=== PATIENT | female | born 1940 | race Caucasian/White ===

== ENCOUNTER 2025-05-01 11:14 | Inpatient (IN) ==
--- NOTE | 2025-05-01 11:45 | Emergency Department Note ---
Impression & Plan Acute right flank pain, Hematuria ED Provider Note NAME: GERTRUDIS AVILA AGE: 84 SEX: F : 1940 ARRIVES VIA: Walk-In INFORMANT: [Patient] ED PROVIDER(S): [Zander Gaines MD] CHIEF COMPLAINT: Hematuria HISTORY OF PRESENT ILLNESS: The patient is an 84-year-old female who presents to the ER with some right flank/abdominal discomfort that began this morning around 6 hours ago. She has noticed some increasing urinary frequency throughout the day. The patient states that several hours ago, she noticed blood in the urine. She went to the doctor's office, she was referred to our ER. There has been some slight nausea, no vomiting. No fever. She is concerned for an issue with her kidneys. Her right sided abdominal/flank pain has been intermittent. PMHx/PSHx/Social Hx: See Below PHYSICAL EXAM: GENERAL: Patient is in no acute distress. HEENT: No acute trauma, normocephalic atraumatic, mucous membranes moist, no nasal congestion. NECK: No stridor, no adenopathy, no meningismus, trachea is midline. LUNGS: Clear to auscultation bilaterally, no wheeze, no rhonchi, breath sounds equal. HEART: Without murmurs gallops or rubs, regular rate and rhythm. ABDOMEN: Soft, nontender, no peritonitis. EXTREMITIES: No cyanosis, full range of motion of all the joints without pain or difficulty. NEUROLOGIC: Oriented x 3, no acute motor or sensory deficits, no focal weakness. SKIN: No jaundice, no diaphoresis. Back: No flank discomfort with percussion. DIFFERENTIAL DIAGNOSIS: Renal colic, pyelonephritis, hydronephrosis, coagulopathy, anemia, vaginal bleeding, among others. EMERGENCY DEPARTMENT PROCEDURES: MEDICAL DECISION MAKING: There is no leukocytosis or worrisome anemia. There is a normal platelet count. No bandemia. No coagulopathy. No renal failure or significant electrolyte abnormality. No concerning liver enzyme elevation. No evidence for pancreatitis. Urinalysis does show hematuria, no obvious infection. Abdominal and pelvis CT shows hemorrhage within the right renal pelvis but there is no ureteral stone or urinary obstruction. On exam, the patient initially had minimal discomfort however, during her ER stay, she began having increasing discomfort in the right flank. She continued to have hematuria. The patient received IV saline, she was given IV Zofran, IV Tylenol, IV morphine, a second dose of IV morphine was given. I did speak with urology. For now, no emergent urologic intervention is required. The patient will require a urologic hematuria workup. Given the ongoing pain, given the ongoing bleeding, admission/observation was felt warranted. I spoke with the patient and case management, the on-call hospitalist was consulted. Further workup for the cause for the hematuria is needed. Prior/Outside records/notes reviewed: None Imaging/x-ray results per my interpretation: Chronic Medical/Social conditions affecting care: Advanced age. Care/Management discussed with: Urology-Dr. Youssef's service. Case management and the on-call hospitalist. Level of care consideration(s): After review of the information above and other included data: --I believe the patient requires escalation of care to admission DISPOSITION: Admission Past Med/Surg History Problem List (Updated 05/01/25 @ 16:07 by Zander Gaines MD) Hematuria (Acute) Acute right flank pain (Acute) Hematuria Bone pain of lower leg Anxiety (Chronic) Encounter for pre-operative examination Insomnia Dyspnea (Acute) Dyspnea (Acute) Post-operative state (Acute 04/03/14) Post-operative state (Acute 06/05/14) Weakness (Acute) Medical History Cholecystectomy planned FH: bilateral hip replacements Surgical History History of cholecystectomy History of right hip replacement History of left hip replacement H/O partial thyroidectomy Family History Mother Colorectal cancer Father Myocardial infarction Denies family history of Ovarian cancer Prostate cancer Breast cancer Social History Smoking Status: Never smoker Second Hand Exposure: No; Do You Dip or Chew Tobacco: No; Hx Alcohol Use: No Hx Substance Use: No Preferred Language: Congolese Communication Ability: Effective Visual Impairment: Limited Hearing Ability: Normal 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 Deburrer Required: No Beliefs That Will Affect Care: None marital status: / Current Living Situation: Alone current occupational status: retired How many Children do You have: 3 Feels Safe at Home: Yes Childhood Exposure to Second-Hand Smoke: Yes Diet: regular caffeine: Yes (coffee) during the past year weight has: increased > 10 lbs Dental Care, Regularly: No Physical Activity Frequency: Daily Seatbelt Use: sometimes Sunscreen Use: No Gender Identity: Female Assistive Devices: Glasses Allergies Allergies Allergy/AdvReac Type Severity Reaction Status Date / Time No Known Allergies Allergy Verified 05/01/25 10:32 Home Meds Home Medications Medication Instructions Recorded Confirmed No Known Home Medications 02/02/23 05/01/25 Results & Data (ED) Vital Signs Vital Signs - 24 hr 05/01/25 11:16 05/01/25 12:12 05/01/25 13:51 Temperature 36.6 C Temperature Source Oral Pulse Rate 76 53 L Pulse Rate [Apical] 66 Pulse Rhythm Regular Pulse Strength Normal Pulse Strength [Apical] Respiratory Rate 16 14 Respiratory Effort / Characteristics Non-Labored Spontaneous Non-Labored Spontaneous Respiratory Depth Normal Normal Respiratory Pattern Regular Regular Blood Pressure 174/94 H Blood Pressure [Right Arm] 140/84 Blood Pressure Mean 120 Blood Pressure Mean [Right Arm] 102 Blood Pressure Position Sitting Blood Pressure Position [Right Arm] Semi-fowlers Pulse Oximetry 96 94 Oxygen Delivery Method Room Air Room Air Oxygen Flow Rate Sepsis Recent Fever Within 48 Hours No Sepsis New/Unexplained Change in Mental Status N/A Sepsis Action Taken by Nursing No Action Required 05/01/25 14:21 05/01/25 15:00 Temperature Temperature Source Pulse Rate Pulse Rate [Apical] 50 L 57 L Pulse Rhythm Pulse Strength Pulse Strength [Apical] Normal Respiratory Rate 18 16 Respiratory Effort / Characteristics Non-Labored Spontaneous Non-Labored Spontaneous Respiratory Depth Normal Normal Respiratory Pattern Regular Regular Blood Pressure Blood Pressure [Right Arm] 189/90 H 168/83 H Blood Pressure Mean Blood Pressure Mean [Right Arm] 123 111 Blood Pressure Position Blood Pressure Position [Right Arm] Semi-fowlers Pulse Oximetry 97 95 Oxygen Delivery Method Room Air Nasal Cannula Oxygen Flow Rate 2 Sepsis Recent Fever Within 48 Hours Sepsis New/Unexplained Change in Mental Status Sepsis Action Taken by Long-Term Medications Current Medication List: was personally reviewed by me Laboratory Data Attestation: I reviewed the patient's lab results. 05/01/25 11:55 05/01/25 11:55 Lab Results 05/01/25 05/01/25 Range/Units 11:55 Unknown WBC 4.53 L (4.8-10.8) K/ul RBC 4.81 (4.20-5.40) M/uL Hgb 15.0 (12.0-16.0) g/dl Hct 43.6 (37.0-47.0) % MCV 90.6 (80.0-100.0) fL MCH 31.2 (25.0-34.0) pg MCHC 34.4 (32.0-36.0) g/dL RDW Std Deviation 43.9 (36.4-46.3) fL RDW Coeff of Gonzalez 13.3 (11.5-14.5) % Plt Count 159 (130-400) K/uL MPV 12.6 H (9.4-12.4) fL Immature Gran % (Auto) 0.4 % Neut % (Auto) 63.9 % Lymph % (Auto) 25.6 % Mcmullen % (Auto) 7.7 % Eos % (Auto) 2.0 % Baso % (Auto) 0.4 % Neut # (Auto) 2.89 (1.40-6.50) K/uL Lymph # (Auto) 1.16 L (1.20-3.40) K/uL Mcmullen # (Auto) 0.35 (0.11-0.59) K/uL Eos # (Auto) 0.09 (0.00-0.50) K/uL Baso # (Auto) 0.02 (0.00-0.20) K/uL Immature Gran # (Auto) 0.02 (0.01-0.20) K/uL PT 10.6 (9.0-12.0) Seconds INR 1.0 (0.9-1.1) APTT 26 (21-31) Seconds PTT Ratio 1.0 Sodium 143 (136-145) mmol/L Potassium 3.8 (3.5-5.1) mmol/L Chloride 110 H (98-107) mmol/L Carbon Dioxide 26 (21-32) mmol/L Anion Gap 7 (3-11) BUN 19 (6-23) mg/dl Creatinine 0.82 (0.6-1.2) mg/dl Est Cr Clr Drug Dosing 51.6 ml/min eGFR 71.37 BUN/Creatinine Ratio 23.2 H (10-20) Glucose 104 H (70-99(Fasting)) mg/dl Calcium 9.2 (8.6-10.3) mg/dl Total Bilirubin 0.8 (0.2-1.0) mg/dl AST 18 (13-39) U/L ALT 18 (7-52) U/L Alkaline Phosphatase 72 (34-104) U/L Total Protein 6.8 (6.0-8.3) gm/dl Albumin 4.1 (3.4-5.0) gm/dl Globulin 2.7 (2.5-4.0) gm/dl Albumin/Globulin Ratio 1.5 (0.9-2) Lipase 31 (11-82) U/L Urine Color Red Urine Appearance Cloudy A (Clear) Urine pH 7.0 (4.5-7.5) Ur Specific [place] 1.025 (1.000-1.030) Urine Protein 3+ H (Negative) Urine Glucose (UA) Negative (Negative) Urine Ketones Negative (Negative) Urine Blood 3+ H (Negative) Urine Nitrite Negative (Negative) Urine Bilirubin Negative (Negative) Urine Urobilinogen Negative (Negative) Ur Leukocyte Esterase Negative (Negative) Urine RBC >20 H (0-2) /hpf Urine WBC 0-5 (0-5) /hpf Ur Epithelial Cells 6-10 H (0-2) /hpf Urine Bacteria None Seen (None Seen) Urine Comment Administered Medications Discontinued Medications Sodium Chloride (Nss) 500 mls @ 999 mls/hr IV .Q31M STA Stop: 05/01/25 12:00 Last Infusion: 05/01/25 15:17 Dose: Infused Documented By: мария Admin: 05/01/25 11:57 Dose: 999 mls/hr Documented By: мария Acetaminophen (Ofirmev) 1,000 mg in 100 mls @ 400 mls/hr IV NOW STA Stop: 05/01/25 14:29 Last Admin: 05/01/25 14:21 Dose: 400 mls/hr Documented By: LYNSEY Ioversol (Optiray 320 100ml) 93 ml IV ONCE ONE Stop: 05/01/25 13:21 Last Admin: 05/01/25 13:20 Dose: 93 ml Documented By: JORGE LUIS Morphine Sulfate (Morphine Sulfate 2 Mg/Ml Carp) 2 mg IV NOW STA Stop: 05/01/25 14:16 Last Admin: 05/01/25 14:20 Dose: 2 mg Documented By: LYNSEY Morphine Sulfate (Morphine Sulfate 4 Mg/Ml 1 Ml Carp\Vial) 4 mg IV NOW STA Stop: 05/01/25 14:30 Last Admin: 05/01/25 15:11 Dose: 4 mg Documented By: мария Ondansetron HCl (Ondansetron Inj 2 Mg/Ml 2 Ml Vial) 4 mg IV NOW STA Stop: 05/01/25 14:16 Last Admin: 05/01/25 14:19 Dose: 4 mg Documented By: LYNSEY Imaging Data Radiologist's Impression: Abdomen/Pelvis CT 05/01/25 11:30 CT SCAN OF THE ABDOMEN AND PELVIS WITH IV CONTRAST CLINICAL HISTORY: Hematuria COMPARISON STUDY: Renal ultrasound dated 04/10/2014. Chest CT dated 12/24/2014. TECHNIQUE: Following the IV administration of 93 cc of Optiray 320, CT scan of the abdomen and pelvis is performed from the lung bases to the proximal femora. Images are reviewed in the axial, sagittal, and coronal planes. IV contrast was administered without complication. A dose lowering technique was utilized adhering to the principles of ALARA. CT DOSE: 1251.65 mGy.cm FINDINGS: Lung bases: The heart is mildly enlarged and without pericardial effusion. There are trace pleural effusions. Scarring/atelectasis is noted at the lung bases. Liver: The contrast-enhanced liver is normal in size, contour, and attenuation. There is no intrahepatic biliary ductal dilatation. The hepatic veins and portal veins are patent. Gallbladder: Surgically absent noting clips in the gallbladder fossa. Spleen: Normal in size and attenuation. Pancreas: A 1.0 cm cystic lesion in the pancreatic body seen on image #109 is typical for a sidebranch IPMN. Adrenal glands: Unremarkable. Kidneys: The contrast enhanced kidneys are normal in size and without hydronephrosis. The kidneys enhance symmetrically. Scattered subcentimeter cortical hypodensities likely represent tiny cysts but are too small for definitive characterization. There is hyperdense material within the right renal pelvis seen on axial image #144. Abdominal vasculature: The abdominal aorta is normal in course and caliber noting moderate atherosclerotic calcification. Bowel: There is advanced colonic diverticulosis without CT evidence of acute diverticulitis. No bowel obstruction is seen. [id number] fecal retention is noted throughout the colon. A duodenal diverticulum is incidentally noted. The appendix is well-visualized and normal. Peritoneum: There is no intraperitoneal free air or abdominal ascites. There is a fat-containing umbilical hernia. Lymphadenopathy: None. Pelvic viscera: Evaluation of the pelvis is degraded by streak artifact from bilateral hip arthroplasties. The bladder is normal as visualized. The endometrium appears thickened and heterogeneous, measuring up to 1.3 cm in diameter. No adnexal lesion is seen. Skeletal structures: The skeletal structures are osteopenic. There is mild to moderate lumbosacral spondylosis. Bilateral hip arthroplasties are in place. No lytic or blastic lesions are seen. IMPRESSION: 1. There is hyperdense material within the right renal pelvis which may represent blood clots, debris, or less likely hypodense stones. There is no hydronephrosis or surrounding inflammation. Correlate with clinical findings and urinalysis. Follow-up with a CT urogram in 2-3 months time is recommended for reassessment/to document resolution. 2. Advanced colonic diverticulosis without CT evidence of acute diverticulitis. 3. The endometrium appears thickened and heterogeneous for age measuring up to 1.3 cm in diameter. This is not well assessed by CT. Nonemergent follow-up with gynecology and pelvic ultrasound is recommended for further evaluation. 4. A 1.0 cm cystic lesion in the pancreatic body is typical for a sidebranch IPMN. This is new from the [address] and nonemergent GI follow-up is recommended. 5. Cardiomegaly and trace pleural effusions. 6. Additional findings as above. ACT 112: Positive. There are findings on this exam that require communication between the performing entity and the patient following Patient Test Result Information Act ([place] Act 112) guidelines. Electronically signed by: Zander Chaidez M.D. 05/01/2025 1:45 PM Discharge Plan Visit Data Chief Complaint: Hematuria Stated Complaint: BLOOD IN URINE, REF BY DOC ED Provider: Zander Gaines Discharge Problem: Acute right flank pain, Hematuria Patient Disposition: Admitted As Inpatient Condition: Fair Forms Stand Alone Forms: Support[employer] Prescriptions Prescriptions: No Action No Known Home Medications Referrals Referrals: Sherlyn Ford MD [Primary Care Provider] - Discharge Problem: Hematuria Qualifiers: Hematuria type: gross Qualified Code(s): R31.0 - Gross hematuria
[2025-05-01] MEDS: SODIUM CHLORIDE 0.9% 500 ML IV STA (11:57)
[2025-05-01 12:45] LABS: Hematocrit (blood only) 43.6 % (37.0-47.0); Hemoglobin 15.0 g/dl (12.0-16.0); Immature Granulocytes # (auto) 0.02 K/uL (0.01-0.20); Immature Granulocytes % (auto) 0.4 %; Mean Corpuscular Hemoglobin 31.2 pg (25.0-34.0); Mean Corpuscular Volume 90.6 fL (80.0-100.0); Platelet Count 159 K/uL (130-400); RDW Standard Deviation 43.9 fL (36.4-46.3); Red Blood Count 4.81 M/uL (4.20-5.40); White Blood Count 4.53 K/ul (4.8-10.8)
[2025-05-01 13:05] LABS: Alanine Aminotransferase 18.0 U/L (7-52); Albumin Globulin Ratio 1.5 (0.9-2); Alkaline Phosphatase 72.0 U/L (34-104); Anion Gap 7.0 (3-11); Bilirubin,Total 0.8 mg/dl (0.2-1.0); Blood Urea Nitrogen 19.0 mg/dl (6-23); Calcium 9.2 mg/dl (8.6-10.3); Carbon Dioxide 26.0 mmol/L (21-32); Chloride 110.0 mmol/L (98-107); Creatinine Clr Calc Pharmacy 51.6 ml/min; Globulin 2.7 gm/dl (2.5-4.0); Glucose 104.0 mg/dl (70-99(Fasting)); Lipase 31.0 U/L (11-82); Potassium 3.8 mmol/L (3.5-5.1); Sodium 143.0 mmol/L (136-145); Total Protein 6.8 gm/dl (6.0-8.3)
[2025-05-01 13:18] LABS: INR 1.0 (0.9-1.1); Partial Thromboplastin Time 26 Seconds (21-31); Prothrombin Time 10.6 Seconds (9.0-12.0)
[2025-05-01] MEDS: OPTIRAY 320 100ml IV ONE (13:20)
--- NOTE | 2025-05-01 13:47 | CT Scan Report ---
CT SCAN OF THE ABDOMEN AND PELVIS WITH IV CONTRAST CLINICAL HISTORY: Hematuria COMPARISON STUDY: Renal ultrasound dated 04/10/2014. Chest CT dated 12/24/2014. TECHNIQUE: Following the IV administration of 93 cc of Optiray 320, CT scan of the abdomen and pelvi s is performed from the lung bases to the proximal femora. Images are reviewed in the axial, sagittal , and coronal planes. IV contrast was administered without complication. A dose lowering technique wa s utilized adhering to the principles of ALARA. CT DOSE: 1251.65 mGy.cm FINDINGS: Lung bases: The heart is mildly enlarged and without pericardial effusion. There are trace pleural ef fusions. Scarring/atelectasis is noted at the lung bases. Liver: The contrast-enhanced liver is normal in size, contour, and attenuation. There is no intrahepa tic biliary ductal dilatation. The hepatic veins and portal veins are patent. Gallbladder: Surgically absent noting clips in the gallbladder fossa. Spleen: Normal in size and attenuation. Pancreas: A 1.0 cm cystic lesion in the pancreatic body seen on image #109 is typical for a sidebranc h IPMN. Adrenal glands: Unremarkable. Kidneys: The contrast enhanced kidneys are normal in size and without hydronephrosis. The kidneys enh ance symmetrically. Scattered subcentimeter cortical hypodensities likely represent tiny cysts but ar e too small for definitive characterization. There is hyperdense material within the right renal pelv is seen on axial image #144. Abdominal vasculature: The abdominal aorta is normal in course and caliber noting moderate atheroscle rotic calcification. Bowel: There is advanced colonic diverticulosis without CT evidence of acute diverticulitis. No bowel obstruction is seen. [id number]-[id number] fecal retention is noted throughout the colon. A duodenal dive rticulum is incidentally noted. The appendix is well-visualized and normal. Peritoneum: There is no intraperitoneal free air or abdominal ascites. There is a fat-containing umbi lical hernia. Lymphadenopathy: None. Pelvic viscera: Evaluation of the pelvis is degraded by streak artifact from bilateral hip arthroplas ties. The bladder is normal as visualized. The endometrium appears thickened and heterogeneous, measu ring up to 1.3 cm in diameter. No adnexal lesion is seen. Skeletal structures: The skeletal structures are osteopenic. There is mild to moderate lumbosacral sp ondylosis. Bilateral hip arthroplasties are in place. No lytic or blastic lesions are seen. IMPRESSION: 1. There is hyperdense material within the right renal pelvis which may represent blood clots, debris , or less likely hypodense stones. There is no hydronephrosis or surrounding inflammation. Correlate with clinical findings and urinalysis. Follow-up with a CT urogram in 2-3 months time is recommended for reassessment/to document resolution. 2. Advanced colonic diverticulosis without CT evidence of acute diverticulitis. 3. The endometrium appears thickened and heterogeneous for age measuring up to 1.3 cm in diameter. Th is is not well assessed by CT. Nonemergent follow-up with gynecology and pelvic ultrasound is recomme nded for further evaluation. 4. A 1.0 cm cystic lesion in the pancreatic body is typical for a sidebranch IPMN. This is new from [address] and nonemergent GI follow-up is recommended. 5. Cardiomegaly and trace pleural effusions. 6. Additional findings as above. ACT 112: Positive. There are findings on this exam that require communication between the performing entity and the patient following Patient Test Result Information Act ([place] Act 112) guidelines. Electronically signed by: Zander Chaidez M.D. 05/01/2025 1:45 PM
[2025-05-01 14:07] LABS: Appearance Urine Cloudy (Clear); Glucose Urine UA Negative (Negative)
[2025-05-01] MEDS: ONDANSETRON INJ 2 MG/ML 2 ML VIAL IV STA (14:19)
[2025-05-01] MEDS: MoRPHine SULFATE 2 MG/ML CARP IV STA (14:20)
[2025-05-01] MEDS: ACETAMINOPHEN 1,000 MG/100 ML VIAL IV STA (14:21)
[2025-05-01] MEDS: MoRPHine SULFATE 4 MG/ML 1 ML CARP\\VIAL IV STA (15:11)
--- NOTE | 2025-05-01 16:41 | History & Physical Report ---
Date of Service May 01, 2025 Assessment & Plan (1) Acute right flank pain: (2) Hematuria: Plan 84 y/o female with PMH of anxiety presented to the Ed due to gross hematuria. Pain started at 5:30 am whit morning as sharp RLQ pain. Following the pain, she started to developed gross hematuria. She was seen at her PCP where she was sent to the Ed for further workup. CT scan with right renal pelvis blood clots, no hydronephrosis, no surrounding inflammation. Patient will be admitted for further monitoring and hematuria workup. Gross Hematuria - Presented with sharp RLQ pain with associated gross hematuria. On evaluation with mild CVA tenderness. She does have frequency, no urgency or dysuria - Abdomen CT: Hyperdense material within right renal pelvic likely blood clots. No hydronephrosis or inflammation. Advance colonic diverticulosis. - Vital signs stable. - Hgb: 15.0. Normal coagulation panel. Creatinine 0.82. No leukocytosis - UA positive for urine blood, and RBC. Urine protein and epithelial cells. 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 Anxiety - No home medications DVT prophylaxis: SCDs, pharmacological held due to hematuria Disposition: Admit to Med/surge History of Present Illness Primary Care Provider: Sherlyn Ford MD 84 y/o female with PMH of anxiety presented to the ED due to gross hematuria. Pain started at 5:30 am with morning as sharp RLQ pain. Following the pain, she started to developed gross hematuria. She was seen by her PCP this AM, where she was sent to the ED for further workup. She states pain is waxing and wane type of pain. Denied any chest pain, SOB, palpitations. Denied any dizziness or lightheadedness. Denied any smoking or alcohol use. Denied any weight loss. She has family history of colon cancer, her mom. She states having colon cancer screening in the past that had been resulted negative. At the moment of my evaluation she was pain free. ED course: Morphine IV, NSS bolus 1L and IV Zosyn Allergies Allergy/AdvReac Type Severity Reaction Status Date / Time No Known Allergies Allergy Verified 05/01/25 10:32 Home Medications Medication Instructions Recorded Confirmed Type No Known Home Medications 02/02/23 05/01/25 History Past Med/Surg History Problem List (Updated 05/01/25 @ 16:07 by Zander Gaines MD) Hematuria (Acute) Acute right flank pain (Acute) Hematuria Bone pain of lower leg Anxiety (Chronic) Encounter for pre-operative examination Insomnia Dyspnea (Acute) Dyspnea (Acute) Post-operative state (Acute 04/03/14) Post-operative state (Acute 06/05/14) Weakness (Acute) Medical History Cholecystectomy planned FH: bilateral hip replacements Surgical History History of cholecystectomy History of right hip replacement History of left hip replacement H/O partial thyroidectomy Family History Mother Colorectal cancer Father Myocardial infarction Denies family history of Ovarian cancer Prostate cancer Breast cancer Social History Smoking Status: Never smoker Second Hand Exposure: No; Do You Dip or Chew Tobacco: No; Hx Alcohol Use: No Hx Substance Use: No Preferred Language: [place] Communication Ability: Effective Visual Impairment: Limited Hearing Ability: Normal Front Office Developer Required: No Beliefs That Will Affect Care: None marital status: / Current Living Situation: Alone current occupational status: retired How many Children do You have: 3 Other Information That Helps Us Care for You: No Feels Safe at Home: Yes Safety Concerns: Feels Safe At This Time Childhood Exposure to Second-Hand Smoke: Yes Diet: regular caffeine: Yes (coffee) during the past year weight has: increased > 10 lbs Dental Care, Regularly: No Physical Activity Frequency: Daily Seatbelt Use: sometimes Sunscreen Use: No Gender Identity: Female Assistive Devices: Glasses Review of Systems Review of Systems: as per hpi Physical Exam Constitutional: well developed and well nourished; no acute distress Eyes: PERRL, conjunctivae normal, anicteric sclerae Respiratory: normal respiratory effort, lungs clear to auscultation Cardiovascular: RRR, no murmur, no edema Gastrointestinal (Abdomen): normal bowel sounds, soft, nontender, no hepatosplenomegaly Right CVA tenderness Skin: no rashes, warm and dry Results & Data Results & Data Vital Signs (Past 12 Hours) Vital Signs Temp Pulse Pulse Resp BP BP Pulse Ox 05/01/25 15:00 57 L 16 168/83 H 95 05/01/25 14:21 50 L 18 189/90 H 97 05/01/25 13:51 53 L 05/01/25 12:12 66 14 140/84 94 05/01/25 11:16 36.6 C 76 16 174/94 H 96 O2 Del Method O2 Flow Rate 05/01/25 15:00 Nasal Cannula 2 05/01/25 14:21 Room Air 05/01/25 13:51 05/01/25 12:12 Room Air 05/01/25 11:16 Room Air Laboratory Results CBC, BMP, LFTs, UA, lipase reviewed Diagnostic Findings CT A/P reviewed Code Status & VTE Plan Code Status FULL CODE VTE Prophylaxis Plan VTE Prophylaxis will be ordered: Yes Supervising Physician Co-Signing Physician Notes I personally examined the patient and verified all toro points of history and exam, discussed case, and agree with decision making with Dr. Rodrick Londono with the following additions/exceptions: S-Pt here with acute onset of hematuria and RLQ abd pain. No fevers or chills, no urinary symptoms. Is not passing clots but reports the toilet is with bright red blood after she urinates. History and ROS otherwise reviewed as above O- Vitals Reviewed Gen: [AAOx3, NAD] HEENT: [anicteric sclerae, EOMI] CV: [RRR no mgr nl S1S2] Pulm: [CTAB no wcr] Abd: [+BS soft NT ND no masses or hernias] Ext: [left calf slightly larger in size than right Skin: [no rashes, warm/dry] Neuro: [full strength throughout] A/P: 84 yo female with a h/o depression/anxiety, lower back pain, here with RLQ abd pain and gross hematuria with abnormal right kidney on CT abd/pel. Hgb stable, hemodynamically stable. Consult Urology to see about cystoscopy inpatient vs outpt. Follow CBC f/u incidental uterine and pancreas findings as outpt Check LLE venous doppler given left leg swelling asymmetric Resident Activity Tracking Resident Involvement: Resident Care Provided Care Provided: Adult Hospital Medicine (2) Hematuria Hematuria type: gross Qualified Code(s): R31.0 - Gross hematuria
[2025-05-01] MEDS ORDERED: MoRPHine SULFATE 2 MG/ML CARP IM PRN (17:44)
[2025-05-01] MEDS ORDERED: MELATONIN 3 MG TAB PO PRN (17:44)
[2025-05-01] MEDS ORDERED: POLYETHYLENE (MIRALAX) 17 GM PACK PO PRN (17:44)
[2025-05-01] MEDS ORDERED: ONDANSETRON INJ 2 MG/ML 2 ML VIAL IV PRN (17:44)
--- NOTE | 2025-05-01 22:25 | Ultrasound Report ---
Exam(s): US VENOUS LEFT LOWER EXTREMITY EXAM: US Duplex Left Lower Extremity Veins CLINICAL HISTORY: Reason for exam: assess for dvt. TECHNIQUE: Real-time duplex ultrasound scan of the left lower extremity veins integrating B-mode two-dimensional vascular structure, Doppler spectral analysis, color flow Doppler imaging and compression. COMPARISON: No relevant prior studies available. FINDINGS: Deep veins: No DVT in the visualized common femoral, femoral, proximal deep femoral or popliteal veins. The veins demonstrate normal color flow, are normally compressible, with normal phasic flow and/or augmentation response. Superficial veins: No thrombus in the visualized great saphenous vein. Soft tissues: No acute findings. IMPRESSION: No evidence of acute DVT. Electronically signed by: Kelli Au M.D. 05/01/25 22:24 PM
--- NOTE | 2025-05-01 23:42 | Billing Data ---
Date of Service May 01, 2025 Coding Level of Care Code 34768 INT INP/OBS CARE 3/75MIN Time Spent (min) 60 Comment
[2025-05-02 06:33] LABS: Hematocrit (blood only) 39.2 % (37.0-47.0); Hemoglobin 13.7 g/dl (12.0-16.0); Immature Granulocytes # (auto) 0.02 K/uL (0.01-0.20); Immature Granulocytes % (auto) 0.3 %; Mean Corpuscular Hemoglobin 32.4 pg (25.0-34.0); Mean Corpuscular Volume 92.7 fL (80.0-100.0); Platelet Count 134 K/uL (130-400); RDW Standard Deviation 46.6 fL (36.4-46.3); Red Blood Count 4.23 M/uL (4.20-5.40); White Blood Count 6.29 K/ul (4.8-10.8)
[2025-05-02 06:56] LABS: INR 1.0 (0.9-1.1); Prothrombin Time 11.0 Seconds (9.0-12.0)
[2025-05-02 07:02] LABS: Anion Gap 5.0 (3-11); Blood Urea Nitrogen 20.0 mg/dl (6-23); Calcium 8.4 mg/dl (8.6-10.3); Carbon Dioxide 28.0 mmol/L (21-32); Chloride 109.0 mmol/L (98-107); Creatinine Clr Calc Pharmacy 31.2 ml/min; Glucose 89.0 mg/dl (70-99(Fasting)); Potassium 4.0 mmol/L (3.5-5.1); Sodium 142.0 mmol/L (136-145)
--- NOTE | 2025-05-02 08:28 | Hospitalist Progress Note ---
Date of Service May 02, 2025 Assessment & Plan (1) Hematuria: (2) Acute right flank pain: Plan Plan 84 y/o female with PMH of anxiety presented to the ED due to gross hematuria. Pain started the day prior originating from right flank. Following the pain, she started to developed gross hematuria. She was seen at her PCP where she was sent to the ED for further workup. CT scan with right renal pelvis blood clots, no hydronephrosis, no surrounding inflammation. Patient was admitted for further workup/evaluation, hematuria persists today with persistent right flank pain. # Gross Hematuria/Acute kidney injury Assessment: Presented with acute onset hematuria and right-sided flank pain with no known predisposing factors. Hgb, coag panel, WBC count WNL on admission, thus less concern for infectious/bleeding disorder/liver etiology, but UA was positive for RBCs. She developed urinary retention overnight, likely due to blood clot-related obstruction, which was relieved with Fowler placement. Cr elevated this am, possibly intrinsic/post-renal SUSU, will continue to monitor Cr levels to ensure they are downtrending. Plan: - Uro consulted, have the following recs: - No inpatient surgical intervention needed at this time, they will arrange for ureteroscopy in the outpatient setting - Will continue to follow while pt is inpatient - Bladder scan q shift - Monitor fowler output, bladder irrigation PRN - Daily CBC to assess for blood loss, Hgb 15 on admission and 13.7 this AM. - Monitor vitals - Urine cytology pending - Repeat UA pending - Continue LRs - Continue Tylenol, morphine, Zofran PRN for symptom management - CT w/ contrast: There is hyperdense material within the right renal pelvis which may represent blood clots, debris, or less likely hypodense stones. There is no hydronephrosis or surrounding inflammation. # LLE Edema Assessment: Pt. mentioned LLE swelling compared to RLE that is started several years ago due to trauma from a horse kick. A venous doppler u/s was ordered for DVT rule out, which was negative. Plan: - Continue to monitor, most likely associated with chronic impaired lymph drainage secondary to trauma. 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 Plan: - Nonemergent GI follow up outpatient recommended # Endometrium thickness Assessment: Incidental finding of endometrial thickness 1.3 cm in diameter on CT imaging. Pt. currently asymptomatic. 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 # Anxiety Assessment: Hx of anxiety, currently not any home medications Plan: - Continue to monitor DVT Prophylaxis: SCD, pharm management deferred due to current bleed Dispo: Med-Surg, no tele Admission and Anticipated Discharge Date Admission Date: May 01, 2025 Supervising Physician Co-Signing Physician Notes I personally examined the patient and verified all toro points of history and exam, discussed case, and agree with decision making with Dr. Rodrick Londono and MS4 Ms. Patel with the following additions/exceptions: S-Pt was doing better all day and in evening having increasing right flank pain again. No BM since admission, felt bloated after eating today. Continues with blood in Fowler placed last night for retention. O- Vitals Reviewed Gen: [AAOx3, NAD] HEENT: [anicteric sclerae, EOMI] CV: [RRR no mgr nl S1S2] Pulm: [CTAB no wcr] Abd: [+BS soft NT ND no masses or hernias] CBC, BMP , UA reviewed A/P: 84 yo female with a h/o depression/anxiety, lower back pain, here with RLQ abd pain and gross hematuria with abnormal right kidney on CT abd/pel. Remains with hematuria and Fowler placed for retention, now with SUSU likely post- obstructive Hgb slight drop but remains hemodynamically stable. Consult Urology appreciated-plan for outpt ureteroscopy Follow CBC in AM COntinue IVFs to flush out hematuria Irrigate catheter now given return of flank pain Repeat UA now with WBCs and bacteria, no epis, ongoing > 20 RBC--> start ceftriaxone in case UTI causing hematuria f/u incidental uterine and pancreas findings as outpt Subjective Seen at bedside this AM, feels a little better, still endorsing right flank pain, sharp in nature. Had urinary retention overnight, which were relieved with fowler catheter placement. Review of Systems Review of Systems: As noted in HPI. Physical Exam Physical Exam: General: Does not appear in acute distress, lying comfortably in bed. HEENT: No cervical lymphadenopathy. No JVD. CV: S1 and S2 present. RRR. No murmurs, rubs, or gallops. Resp: CTA B/L. No rales, wheezing, or rhonchi. GI: Normoactive bowel sounds. No masses or tenderness to palpation. : Fowler catheter in place, dark blood noted in fowler. MSK: LLE slightly larger than RLE, no abnormal lesions visualized. Right-sided CVA tenderness. Psych: Appropriate mood and affect. Results & Data Results & Data Vital Signs (Past 12 Hours) Vital Signs Temp Pulse Resp BP Pulse Ox O2 Del Method 05/02/25 07:56 36.6 C 57 L 16 126/72 93 Room Air (1) Hematuria Hematuria type: gross Qualified Code(s): R31.0 - Gross hematuria
[2025-05-02] MEDS: LACTATED RINGER'S 1,000 ML IV SCH (09:09)
[2025-05-02] MEDS: ACETAMINOPHEN 325 MG TAB PO PRN (10:12)
[2025-05-02 12:05] LABS: Appearance Urine Cloudy (Clear)
[2025-05-02 12:08] LABS: Epithelial Cell Urine 0-2 /hpf (0-2)
--- NOTE | 2025-05-02 13:21 | Urology Consultation ---
Date of Consultation May 02, 2025 Assessment & Plan (1) Hematuria: (2) Acute right flank pain: Plan 84 yo female admitted with acute right flank pain and gross hematuria. CT abdomen pelvis on admission showed hyperdense material within the right renal pelvis may represent blood clot/debris/less likely hyperdense stones. There was no hydronephrosis or surrounding inflammation. She is afebrile and hemodynamically stable. Labs today show no leukocytosis, hemoglobin 13.7. Creatinine up to 1.35 (was 0.82 on admit). Patient did develop urinary retention requiring Elizabeth catheter placement. Elizabeth is currently intact and draining dark tea colored urine. SUSU possibly due to urinary retention, will hopefully improve with bladder decompression. We reviewed her CT findings. We discussed cystoscopy with right ureteroscopy for further evaluation of gross hematuria and right renal pelvis findings on CT. Discussed that this can be further discussed and arranged as an outpatient- she is agreeable. No acute intervention warranted at this time. Maintain Elizabeth catheter and continue to monitor. Okay to hand irrigate as needed for clots, retention, suprapubic pain. Urine culture pending. Urine cytology was negative for high-grade urothelial carcinoma. Continue supportive care. Urology will follow. History of Present Illness Attending Physician: Merle Jordan MD History of Present Illness 84-year-old female who presented to the ED on 05/01/2025 due to gross hematuria. Patient reported that she woke up with acute right sided pain had also developed gross hematuria. She was seen by her PCP who recommended she be seen in the ED for further workup. In the ED, she was afebrile and hemodynamically stable. Labs showing no leukocytosis, stable hemoglobin, normal renal function. Urinalysis showing 3+ blood,> 20 RBC, negative bacteria, negative nitrite. CT abdomen pelvis obtained and demonstrated hyperdense material within the right renal pelvis possibly representing blood clot, debris, or less likely hyperdense stones. No hydronephrosis or surrounding inflammation. Due to her pain and hematuria, patient was admitted to medicine service. Patient was seen at bedside today. She is awake and resting bed on arrival. No acute distress. Patient did develop urinary retention earlier today requiring Elizabeth catheter placement. Catheter is currently intact and draining dark tea colored urine. She reports overall improvement in pain. Denies fevers or chills. Denies nausea or vomiting. Patient denies prior history. Denies pertinent family history. Denies history of tobacco use. Allergies Allergy/AdvReac Type Severity Reaction Status Date / Time No Known Allergies Allergy Verified 05/01/25 10:32 Home Medications Medication Instructions Recorded Confirmed Type No Known Home Medications 02/02/23 05/01/25 History Patient History Medical History Cholecystectomy planned FH: bilateral hip replacements Surgical History History of cholecystectomy History of right hip replacement History of left hip replacement H/O partial thyroidectomy Family History Mother Colorectal cancer Father Myocardial infarction Denies family history of Ovarian cancer Prostate cancer Breast cancer Social History Smoking Status: Never smoker Second Hand Exposure: No; Do You Dip or Chew Tobacco: No; Hx Alcohol Use: No Hx Substance Use: No Preferred Language: [place] Citizen Communication Ability: Effective Visual Impairment: Limited Hearing Ability: Normal Teacher Of The Deaf/Hard Of Hearing Required: No Beliefs That Will Affect Care: None marital status: / Current Living Situation: Alone current occupational status: retired How many Children do You have: 3 Other Information That Helps Us Care for You: No Feels Safe at Home: Yes Safety Concerns: Feels Safe At This Time Childhood Exposure to Second-Hand Smoke: Yes Diet: regular caffeine: Yes (coffee) during the past year weight has: increased > 10 lbs Dental Care, Regularly: No Physical Activity Frequency: Daily Seatbelt Use: sometimes Sunscreen Use: No Gender Identity: Female Assistive Devices: Glasses Review of Systems Review of Systems: All systems reviewed & are unremarkable except as noted in HPI & below Physical Exam Constitutional: no acute distress Respiratory: no respiratory distress and no labored breathing Skin: No visible rashes or lesions to exposed skin areas Neurologic: moves all extremities and awake Psychiatric: A+Ox3, euthymic affect Genitourinary: Elizabeth intact and draining dark tea colored urine Results & Data Vital Signs (Past 12 Hours) Vital Signs Temp Pulse Resp BP Pulse Ox O2 Del Method 05/02/25 07:56 36.6 C 57 L 16 126/72 93 Room Air PG Care Time/CCT Total # of Minutes Spent Total Time Spent with Patient: Total time spent is greater than 50% in coordination of care (as documented) at patient's floor/unit and/or counseling patient: Coding Level of Care Code 92591 INT INP/OBS CARE 2/55MIN Diagnoses Hematuria R31.0 Hematuria type: gross Acute right flank pain R10.9 (1) Hematuria Hematuria type: gross Qualified Code(s): R31.0 - Gross hematuria
[2025-05-02] MEDS ORDERED: MoRPHine SULFATE 2 MG/ML CARP IV PRN (19:25)
--- NOTE | 2025-05-02 19:32 | Billing Data ---
Date of Service May 02, 2025 Coding Level of Care Code 52951 SUB INP/OBS CARE MIN
[2025-05-02] MEDS: cefTRIAXone SODIUM 2,000 MG/50 ML BAG IV SCH (19:56)
[2025-05-02] MEDS: DOCUSATE SODIUM/SENNA 50/8.6MG TAB PO SCH (19:57)
[2025-05-03 06:46] LABS: Hematocrit (blood only) 38.3 % (37.0-47.0); Hemoglobin 13.3 g/dl (12.0-16.0); Mean Corpuscular Hemoglobin 31.9 pg (25.0-34.0); Mean Corpuscular Volume 91.8 fL (80.0-100.0); Platelet Count 131 K/uL (130-400); RDW Standard Deviation 44.7 fL (36.4-46.3); Red Blood Count 4.17 M/uL (4.20-5.40); White Blood Count 6.34 K/ul (4.8-10.8)
[2025-05-03 07:08] LABS: Anion Gap 5.0 (3-11); Blood Urea Nitrogen 21.0 mg/dl (6-23); Calcium 8.5 mg/dl (8.6-10.3); Carbon Dioxide 27.0 mmol/L (21-32); Chloride 110.0 mmol/L (98-107); Creatinine Clr Calc Pharmacy 23.6 ml/min; Glucose 97.0 mg/dl (70-99(Fasting)); Potassium 4.1 mmol/L (3.5-5.1); Sodium 142.0 mmol/L (136-145)
[2025-05-03] MEDS: LACTATED RINGER'S 1,000 ML IV SCH (08:15)
--- NOTE | 2025-05-03 09:41 | Hospitalist Progress Note ---
Date of Service May 03, 2025 Assessment & Plan (1) Hematuria: (2) Acute right flank pain: Plan Plan 84 y/o female with PMH of anxiety presented to the ED due to gross hematuria. Pain started yesterday morning originating from right middle quadrant. Following the pain, she started to developed gross hematuria. She was seen at her PCP where she was sent to the ED for further workup. CT scan with right renal pelvis blood clots, no hydronephrosis, no surrounding inflammation. Patient was admitted for further workup/evaluation, hematuria continues to persist today with persistent RMQ pain. She was found to have a positive UA, U culture pending, and negative urine cytology for urothelial cancer. # Gross Hematuria/Acute kidney injury Assessment: Presented with acute onset hematuria and right-sided flank pain with no known predisposing factors. Hgb, coag panel, WBC count WNL on admission, thus less concern for infectious/bleeding disorder/liver etiology, but UA was positive for RBCs and repeat UA shows pyuria. Cr continues to be elevated this AM, possibly intrinsic/post-renal SUSU, will continue to monitor Cr levels to ensure they are downtrending and has been started on Rocephin while we are pending urine culture results. Fowler in place due to urinary retention that developed 05/01. Plan: - Uro consulted, have the following recs: - Will be NPO after midnight for possible cysto/ureteroscopy tomorrow if Cr continues to worsen - Repeat imaging to assess for obstruction causing rising Cr - Bladder scan q shift - Monitor fowler output, bladder irrigation PRN - Daily CBC to assess for blood loss, Hgb 15 on admission and 13.3 this AM. - Monitor vitals - Urine cytology negative for urothelial carcinoma - Repeat UA showed pyuria, started on Rocephin 05/02 evening and we are pending urine culture - Continue LRs - Continue Tylenol, morphine, Zofran PRN for symptom management - CT w/ contrast 05/01: There is hyperdense material within the right renal pelvis which may represent blood clots, debris, or less likely hypodense stones. There is no hydronephrosis or surrounding inflammation. # Constipation Assessment: Her abdominal symptoms of bloating and passing gas more frequently are most likely due to constipation/GI upset. Has been taking Senokot while inpatient, but has not had a bowel movement in the past couple of days. Plan: - Added Miralax and Simethicone PRN # LLE Edema Assessment: Pt. mentioned LLE swelling compared to RLE that is started several years ago due to trauma from a horse kick. A venous doppler u/s was ordered for DVT rule out, which was negative. Plan: - Continue to monitor, most likely associated with chronic impaired lymph drainage secondary to trauma. 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 Plan: - Non-emergent GI follow up outpatient recommended # Endometrium thickness Assessment: Incidental finding of endometrial thickness 1.3 cm in diameter on CT imaging. Pt. currently asymptomatic. Plan: - Non-emergent emergent MANUAL PLATE FILLER and pelvic ultrasound follow up recommended. # Anxiety Assessment: Hx of anxiety, currently not any home medications Plan: - Continue to monitor DVT Prophylaxis: SCD, pharm management deferred due to current bleed Dispo: Med-Surg, no tele Admission and Anticipated Discharge Date Admission Date: May 02, 2025 Supervising Physician Co-Signing Physician Notes I personally examined the patient and verified all toro points of history and exam, discussed case, and agree with decision making with Dr. Rodrick oLndono and MS4 Ms. Patel with the following additions/exceptions: S-Pt reports much less pain today, no clogging of Fowler today as per RN. Urine clearing up quite a bit, only pink-tinged now. Still feels bloated, passing a lot of flatus and belching but no BM in 4-5 days. O- Vitals Reviewed Gen: [AAOx3, NAD] HEENT: [anicteric sclerae, EOMI] CV: [RRR no mgr nl S1S2] Pulm: [CTAB no wcr] Abd: [+BS soft NT ND no masses or hernias] CBC, BMP, urine cx reviewed A/P: 84 yo female with a h/o depression/anxiety, lower back pain, here with RLQ abd pain and gross hematuria with abnormal right kidney on CT abd/pel. Remains with hematuria and Fowler placed for retention, now with SUSU likely post- obstructive vs intrinsic Hgb slight drop since admission but remains hemodynamically stable. Consult Urology appreciated-plan for possible ureteroscopy tomorrow if SUSU worsens or not improving. Would check CT A/P in AM if SUSU worsens Follow CBC in AM COntinue IVFs to flush out hematuria COntinue ceftriaxone and follow urine cx Continue bowel regimen for constipation f/u incidental uterine and pancreas findings as outpt Subjective Feels the same as yesterday. No dizziness, chest pain, SOB, nausea, vomiting, fever, chills. Yesterday, there was a miscommunication that was thought to be that she had right flank pain, however, it is actually the abdominal pain on the right side that she originally presented with. The pain is slightly better today, but continues to persist. Has also had bloating and has been passing gas more frequently this AM post breakfast. Has been taking Senokot these past couple of days, last BM two days ago. Review of Systems Review of Systems: As noted in HPI. Physical Exam Physical Exam: General: Does not appear in acute distress, lying comfortably in bed. HEENT: No cervical lymphadenopathy. No JVD. CV: S1 and S2 present. RRR. No murmurs, rubs, or gallops. Resp: CTA B/L. No rales, wheezing, or rhonchi. GI: Normoactive bowel sounds. No masses or tenderness to palpation. : Fowler catheter in place, slightly dark-colored blood noted in fowler. MSK: LLE slightly larger than RLE, no abnormal lesions visualized. No CVA tenderness. Psych: Appropriate mood and affect. Results & Data Results & Data Vital Signs (Past 12 Hours) Vital Signs Temp Pulse Resp BP Pulse Ox O2 Del Method 05/03/25 07:03 36.7 C 65 18 132/71 91 Room Air 05/02/25 23:05 36.8 C 62 16 136/75 92 Room Air (1) Hematuria Hematuria type: gross Qualified Code(s): R31.0 - Gross hematuria
--- NOTE | 2025-05-03 10:50 | Urology Progress Note ---
Date of Service May 03, 2025 Assessment & Plan (1) Hematuria: (2) Acute right flank pain: Plan 84 yo female admitted with acute right flank pain and gross hematuria. CT abdomen pelvis on admission showed hyperdense material within the right renal pelvis may represent blood clot/debris/less likely hyperdense stones. There was no hydronephrosis or surrounding inflammation. - Subjectively feeling well. - No reported pain at present. - She is afebrile and hemodynamically stable. - Labs- WBCs 6.34, Hemoglobin 13.3, Creatinine up from 1.35-1.78. - Elziabeth intact and draining pink tinged urine. Hematuria improved from yesterday. Continue to monitor. - Repeat UA showed 1+bacteria, 21-50WBC. Started on Ceftriaxone, follow culture. - Will make NPO at midnight for reassessment in the morning. If creatinine continues to rise, will likely plan to repeat imaging to assess for any obstruction/hydronephrosis. - Maintain Elizabeth catheter. Okay to hand irrigate the catheter as needed for clots, retention, suprapubic pain. - Continue supportive care and pain management as needed. - Urology will follow, please contact us with any questions/concerns. Admission and Anticipated Discharge Date Admission Date: May 02, 2025 Subjective Pt seen at bedside this morning. Awake and resting in bed on arrival. No acute distress. She denies any pain at present. Does have some intermittent right sided pain, improves with passing gas. Denies f/c/n/v. Elizabeth intact and draining pink tinged urine. She did require manual irrigation yesterday evening by nursing staff. Review of Systems Constitutional: as per Subjective / HPI Genitourinary: as per Subjective / HPI Physical Exam Constitutional: no acute distress Respiratory: no respiratory distress and no labored breathing Neurologic: moves all extremities and awake Psychiatric: A+Ox3, euthymic affect Genitourinary: Elizabeth intact and draining pink tinged urine Results & Data Vital Signs (Past 12 Hours) Vital Signs Temp Pulse Resp BP Pulse Ox O2 Del Method 05/03/25 07:45 Room Air 05/03/25 07:03 36.7 C 65 18 132/71 91 Room Air 05/02/25 23:05 36.8 C 62 16 136/75 92 Room Air PG Care Time/CCT Total # of Minutes Spent Total Time Spent with Patient: Total time spent is greater than 50% in coordination of care (as documented) at patient's floor/unit and/or counseling patient: Coding Level of Care Code 85481 SUB INP/OBS CARE 2/35MIN Diagnoses Hematuria R31.0 Hematuria type: gross Acute right flank pain R10.9 (1) Hematuria Hematuria type: gross Qualified Code(s): R31.0 - Gross hematuria
[2025-05-03] MEDS: POLYETHYLENE (MIRALAX) 17 GM PACK PO ONE (12:08)
--- NOTE | 2025-05-03 18:43 | Billing Data ---
Date of Service May 03, 2025 Coding Level of Care Code 03581 SUB INP/OBS CARE
[2025-05-03] MEDS: SIMETHICONE 80 MG CHEW PO PRN (20:18)
[2025-05-04 06:10] LABS: Hematocrit (blood only) 37.5 % (37.0-47.0); Hemoglobin 13.1 g/dl (12.0-16.0); Immature Granulocytes # (auto) 0.01 K/uL (0.01-0.20); Immature Granulocytes % (auto) 0.2 %; Mean Corpuscular Hemoglobin 32.1 pg (25.0-34.0); Mean Corpuscular Volume 91.9 fL (80.0-100.0); Platelet Count 135 K/uL (130-400); RDW Standard Deviation 45.4 fL (36.4-46.3); Red Blood Count 4.08 M/uL (4.20-5.40); White Blood Count 4.28 K/ul (4.8-10.8)
[2025-05-04 06:28] LABS: Anion Gap 4.0 (3-11); Blood Urea Nitrogen 17.0 mg/dl (6-23); Calcium 8.5 mg/dl (8.6-10.3); Carbon Dioxide 28.0 mmol/L (21-32); Chloride 108.0 mmol/L (98-107); Creatinine Clr Calc Pharmacy 38.6 ml/min; Glucose 96.0 mg/dl (70-99(Fasting)); Potassium 4.1 mmol/L (3.5-5.1); Sodium 140.0 mmol/L (136-145)
--- NOTE | 2025-05-04 10:46 | Hospitalist Progress Note ---
Date of Service May 04, 2025 Assessment & Plan (1) Hematuria: (2) Acute right flank pain: (3) SUSU (acute kidney injury): Plan Plan 84 y/o female with PMH of anxiety presented to the ED due to gross hematuria. Pain started yesterday morning originating from right middle quadrant. Following the pain, she started to developed gross hematuria. She was seen at her PCP where she was sent to the ED for further workup. CT scan with right renal pelvis blood clots, no hydronephrosis, no surrounding inflammation. Patient was admitted for further workup/evaluation, hematuria continues to persist today with persistent RMQ pain. She was found to have a positive UA, Ur culture no growth, and negative urine cytology for urothelial cancer. # Gross Hematuria/SUSU - Presented with acute onset hematuria and right-sided flank pain with no known predisposing factors. Hgb, coag panel, WBC count WNL on admission, thus less concern for infectious/bleeding disorder/liver etiology, but UA was positive for RBCs and repeat UA shows pyuria. - Cr improving this morning - 1.78 -> 1.09, plan to continue monitoring Cr levels to ensure they are downtrending. SUSU is likely post-obstructive, possibly in the setting potential clot blocking urine outflow. Rocephin has been discontinued, as urine cultures showing no growth. - Fowler catheter still in place and draining pink-tinged urine this morning. Placed on 05/01 due to urinary retention - Urology consulted and appreciate recommendations. Was planned for repeat cysto this morning, however kidney function has improved so there is no need for intervention today. Will arrange outpatient follow-up with urology service to discuss/arrange cystoscopy/right ureteroscopy for further evaluation of gross hematuria. - Bladder scan q shift - Monitor fowler output, bladder irrigation PRN - Daily CBC to assess for blood loss, Hgb 15 on admission and 13.1 this AM. During admission, there has been a small decrease in Hb, however remains hemodynamically stable - no intervention needed at this time. Will plan to f/u CBC, BMP within 3 days after discharge. - Monitor vitals - Urine cytology negative for urothelial carcinoma - Continue LRs - Continue Tylenol, morphine, Zofran PRN for symptom management - CT w/ contrast 05/01: There is hyperdense material within the right renal pelvis which may represent blood clots, debris, or less likely hypodense stones. There is no hydronephrosis or surrounding inflammation. # Constipation - has been having some bloating and frequent passing of gas, likely due to constipation; reporting loose stools this morning - bowel regimen: senokot 1 tab daily; miralx and simethicone prn -- all have been d/c per patient request due to loose stools # LLE Edema - Pt. mentioned LLE swelling compared to RLE that is started several years ago due to trauma from a horse kick. A venous doppler u/s was ordered for DVT rule out, which was negative. - Continue to monitor, most likely associated with chronic impaired lymph drainage secondary to trauma. 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 - Non-emergent GI follow up outpatient recommended # Endometrium thickness - Incidental finding of endometrial thickness 1.3 cm in diameter on CT imaging. Pt. currently asymptomatic. - Non-emergent emergent DINKER and pelvic ultrasound follow up recommended. # Anxiety - Hx of anxiety, currently not any home medications - Continue to monitor DVT Prophylaxis: SCD, pharm management deferred due to current bleed Dispo: Med-Surg, no tele Admission and Anticipated Discharge Date Admission Date: May 02, 2025 Supervising Physician Co-Signing Physician Notes I personally examined the patient and verified all toro points of history and exam, discussed case, and agree with decision making with Dr. Rodrick Londono and MS4 Ms. Patel with the following additions/exceptions: S-patient reports 2 loose stools today and a lot of belching and passing of flatus would like laxatives to be discontinued. She only has some gas pains but no further right flank pain. Her urine had cleared almost the whole way up but now is brownish with a lot of sediment again today although hemoglobin remains fairly stable. No other acute concerns. O- Vitals Reviewed Gen: [AAOx3, NAD] HEENT: [anicteric sclerae, EOMI] CV: [RRR no mgr nl S1S2] Pulm: [CTAB no wcr] Abd: [+BS soft NT ND no masses or hernias, Fowler catheter with tea colored urine with sediment] CBC, BMP, urine cx reviewed A/P: 84 yo female with a h/o depression/anxiety, lower back pain, here with RLQ abd pain and gross hematuria with abnormal right kidney on CT abd/pel. Remains with hematuria and Fowler placed for retention, developed SUSU likely post-obstructive which is now resolved after flushing with IV fluids Hgb slight drop since admission but remains hemodynamically stable. Consult Urology appreciated-now that SUSU has resolved, plan for outpatient u reteroscopy. Would check CT A/P in AM if SUSU returns Can stop ceftriaxone as urine culture with no growth-pyuria likely due to gross hematuria/leukocytes in the blood Follow CBC in AM COntinue IVFs to flush out hematuria Discontinue laxatives f/u incidental uterine and pancreas findings as outpt Trial of void in the morning Subjective Patient seen and examined at bedside this morning. Awake, resting comfortably in bed. Responding appropriately. No acute distress. No overnight events. She denies any pain this morning. Was NPO at midnight for possible repeat cysto with urology - otherwise was tolerating diet well yesterday. Denies N/V/abdominal pain. Reporting loose stools this morning. Fowler intact and drainage Does have some intermittent right sided pain, improves with passing gas. Denies f/c/n/v. Fowler intact and draining pink tinged urine. Review of Systems Review of Systems: as per hpi Physical Exam Constitutional: WD/WN, vitals as above Respiratory: normal respiratory effort, lungs clear to auscultation Cardiovascular: RRR, no murmur, no edema Gastrointestinal (Abdomen): normal bowel sounds, soft, nontender, no hepatosplenomegaly Skin: no rashes, warm and dry Neurologic: no focal neurological deficits Psychiatric: A+Ox3, euthymic affect Results & Data Results & Data Vital Signs (Past 12 Hours) Vital Signs Temp Pulse Resp BP Pulse Ox O2 Del Method 05/04/25 08:01 36.8 C 57 L 16 146/78 H 93 Room Air 05/04/25 07:10 Room Air Resident Activity Tracking Resident Involvement: Resident Care Provided Care Provided: Adult Hospital Medicine (1) Hematuria Hematuria type: gross Qualified Code(s): R31.0 - Gross hematuria
--- NOTE | 2025-05-04 14:15 | Urology Progress Note ---
Date of Service May 04, 2025 Assessment & Plan (1) Hematuria: (2) Acute right flank pain: Plan 84 yo female admitted with acute right flank pain and gross hematuria. CT abdomen pelvis on admission showed hyperdense material within the right renal pelvis may represent blood clot/debris/less likely hyperdense stones. There was no hydronephrosis or surrounding inflammation. - Subjectively feeling well. - No reported pain at present. - She is afebrile and hemodynamically stable. - No leukocytosis and stable hemoglobin - SUSU resolved. Creatinine 1.09 today. - Fowler intact and draining tea colored urine. - Urine culture negative. She is on Ceftriaxone. - No acute intervention warranted. - In regards to the catheter, if discharge is anticipated today, would recommend maintaining fowler catheter and can arrange outpatient void trial with urology service. - If discharge is anticipated for tomorrow, can perform a void trial tomorrow morning given her urine remains clear to light pink otherwise would d/c home with catheter. - Will arrange outpatient follow-up with our service to discuss/arrange cystoscopy with right ureteroscopy for further evaluation of gross hematuria and right renal pelvis findings on CT. - Urology will follow peripherally. Please contact us with any further questions, concerns, or changes in patient status. Admission and Anticipated Discharge Date Admission Date: May 02, 2025 Subjective Patient seen at bedside today. She is awake and resting in bed on arrival. No acute distress. Feeling well overall. Fowler draining tea colored urine. She denies any right sided pain. Denies fever, chills, nausea, vomiting. Review of Systems Constitutional: as per Subjective / HPI Genitourinary: as per Subjective / HPI Physical Exam Constitutional: no acute distress Respiratory: no respiratory distress and no labored breathing Neurologic: moves all extremities and awake Psychiatric: A+Ox3, euthymic affect Genitourinary: Fowler intact and tea colored urine Results & Data Vital Signs (Past 12 Hours) Vital Signs Temp Pulse Resp BP BP Pulse Ox O2 Del Method 05/04/25 12:33 36.5 C 77 14 136/72 93 Room Air 05/04/25 08:01 36.8 C 57 L 16 146/78 H 93 Room Air 05/04/25 07:10 Room Air PG Care Time/CCT Total # of Minutes Spent Total Time Spent with Patient: Total time spent is greater than 50% in coordination of care (as documented) at patient's floor/unit and/or counseling patient: Coding Level of Care Code 53504 SUB INP/OBS CARE 235MIN Diagnoses Hematuria R31.0 Hematuria type: gross Acute right flank pain R10.9 (1) Hematuria Hematuria type: gross Qualified Code(s): R31.0 - Gross hematuria
--- NOTE | 2025-05-04 16:21 | Billing Data ---
Date of Service May 04, 2025 Coding Level of Care Code 85940 SUB INP/OBS CARE
[2025-05-04 16:40] VITALS: TEMP 98.2
[2025-05-04] MEDS: SIMETHICONE 80 MG CHEW PO PRN (20:40)
[2025-05-05 06:29] LABS: Hematocrit (blood only) 38.6 % (37.0-47.0); Hemoglobin 13.5 g/dl (12.0-16.0); Immature Granulocytes # (auto) 0.02 K/uL (0.01-0.20); Immature Granulocytes % (auto) 0.4 %; Mean Corpuscular Hemoglobin 32.1 pg (25.0-34.0); Mean Corpuscular Volume 91.7 fL (80.0-100.0); Platelet Count 151 K/uL (130-400); RDW Standard Deviation 45.1 fL (36.4-46.3); Red Blood Count 4.21 M/uL (4.20-5.40); White Blood Count 4.77 K/ul (4.8-10.8)
[2025-05-05 06:47] LABS: Alanine Aminotransferase 13.0 U/L (7-52); Albumin Globulin Ratio 1.3 (0.9-2); Alkaline Phosphatase 62.0 U/L (34-104); Anion Gap 5.0 (3-11); Bilirubin,Total 0.9 mg/dl (0.2-1.0); Blood Urea Nitrogen 18.0 mg/dl (6-23); Calcium 8.8 mg/dl (8.6-10.3); Carbon Dioxide 27.0 mmol/L (21-32); Chloride 109.0 mmol/L (98-107); Creatinine Clr Calc Pharmacy 43.8 ml/min; Globulin 2.6 gm/dl (2.5-4.0); Glucose 97.0 mg/dl (70-99(Fasting)); Potassium 4.2 mmol/L (3.5-5.1); Sodium 141.0 mmol/L (136-145); Total Protein 5.9 gm/dl (6.0-8.3)
[2025-05-05 08:06] VITALS: O2SAT 92
--- NOTE | 2025-05-05 12:12 | Discharge Summary ---
Date of Service May 05, 2025 Admission HPI Per Admitting Provider 84 y/o female with PMH of anxiety presented to the ED due to gross hematuria. Pain started at 5:30 am with morning as sharp RLQ pain. Following the pain, she started to developed gross hematuria. She was seen by her PCP this AM, where she was sent to the ED for further workup. She states pain is waxing and wane type of pain. Denied any chest pain, SOB, palpitations. Denied any dizziness or lightheadedness. Denied any smoking or alcohol use. Denied any weight loss. She has family history of colon cancer, her mom. She states having colon cancer screening in the past that had been resulted negative. At the moment of my evaluation she was pain free. ED course: Morphine IV, NSS bolus 1L and IV Zosyn Admission Exam Per Admitting Provider Constitutional: well developed and well nourished; no acute distress Eyes: PERRL, conjunctivae normal, anicteric sclerae Respiratory: normal respiratory effort, lungs clear to auscultation Cardiovascular: RRR, no murmur, no edema Gastrointestinal (Abdomen): normal bowel sounds, soft, nontender, no hepatosplenomegaly Right CVA tenderness Skin: no rashes, warm and dry Principal Diagnosis post-renal SUSU 2/2 gross hematuria likely in the setting of obstruction Discharge Exam Constitutional WD/WN, vitals as above Respiratory normal respiratory effort, lungs clear to auscultation Cardiovascular RRR, no murmur, no edema Gastrointestinal (Abdomen) normal bowel sounds, soft, nontender, no hepatosplenomegaly Skin no rashes, warm and dry Psychiatric A+Ox3, euthymic affect Discharge Data Allergies Allergy/AdvReac Type Severity Reaction Status Date / Time No Known Allergies Allergy Verified 05/01/25 10:32 Consultations 05/01/25 15:19 ED Decision to Admit Stat 05/01/25 17:44 Consult Urology Routine Ordered Studies 05/01/25 11:30 CT abd pelvis IV con only Stat 05/01/25 19:03 US venous doppler LE LT Stat Hospital Course (1) Hematuria: (2) Acute right flank pain: (3) SUSU (acute kidney injury): Plan Plan 84 y/o female with PMH of anxiety presented to the ED due to gross hematuria. Pain started yesterday morning originating from right middle quadrant. Following the pain, she started to developed gross hematuria. She was seen at her PCP where she was sent to the ED for further workup. CT scan with right renal pelvis blood clots, no hydronephrosis, no surrounding inflammation. Patient was admitted for further workup/evaluation. She was found to have a positive UA, Ur culture no growth, and negative urine cytology for urothelial cancer. # Gross Hematuria/SUSU - Presented with acute onset hematuria and right-sided flank pain with no known predisposing factors. Hgb, coag panel, WBC count WNL on admission and remained stable through stay, thus less concern for infectious/bleeding disorder/liver etiology, but UA was positive for RBCs and repeat UA shows pyuria. Was treated briefly with Rocephin, however were discontinued after urine cultures negative for growth. Patient has remained afebrile and without leukocytosis during stay. Urine cytology was negative for urothelial carcinoma. - CT w/ contrast 05/01 showing hyperdense material in the right renal pelvis which may represent blood clots, debris, or less likely hypodense stones; no hydronephrosis or surrounding inflammation - Fowler catheter was placed 05/01 due to urinary retention. Was taken out this morning for voiding trial, however patient was unable to void. Repeat bladder scan 427 mL. Straight catheterized and drained 600mL brown urine without clots. Folwer was replaced and plan to go home with it. Discussed fowler care with patient. - Cr continues to improve this morning - 1.78 -> 1.09 ->0.96. Will plan to repeat CBC & BMP in 3 days after discharge to ensure level continue to improve/stabilize. SUSU is likely post-obstructive, possibly in the setting potential clot blocking urine outflow. - Urology consulted and appreciate recommendations during admission. Was planned for cysto, however kidney function has improved so there is no need for intervention. Planning for outpatient follow-up with urology service to discuss/arrange cystoscopy/right ureteroscopy for further evaluation of gross hematuria. - Pain was managed with Tylenol, morphine, Zofran PRN for symptom management. She also had been receiving IV fluids during admission. # Constipation - has been having some bloating and frequent passing of gas, likely due to constipation; Patient was reporting loose stool yesterday morning and states this has become to stabilize this morning. - bowel regimen: senokot 1 tab daily; miralx and simethicone prn -- all have been d/c per patient request due to loose stools # LLE Edema - Pt. mentioned LLE swelling compared to RLE that is started several years ago due to trauma from a horse kick. A venous doppler u/s was ordered for DVT rule out, which was negative. - Monitored during admission, however, most likely associated with chronic impaired lymph drainage secondary to trauma. 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 - Non-emergent GI follow up outpatient recommended. # Endometrium thickness - Incidental finding of endometrial thickness 1.3 cm in diameter on CT imaging. Pt. currently asymptomatic. - Non-emergent emergent [employer] and pelvic ultrasound follow up recommended. # Anxiety - Hx of anxiety, currently not any home medications - mood stable during admission DVT Prophylaxis: SCD, pharm management deferred due to current bleed Dispo: home discharge today. Total Time Total Time Spent Total Time Spent (In Minutes): 45 Total Time Includes: Examination of the Patient, Discharge Planning, Medication Reconciliation and Communication With Other Providers Discharge Plan Discharge Items Patient Disposition: Home - Self-Care Reason For Visit: GROSS HEMATURIA Discharge Diagnosis: gross hematuria/SUSU Condition on Discharge: Fair Activity: Resume your previous activity Non-emergency contact: Primary Care Provider Call non-emergency contact if: you have any medication questions and your symptoms worsen Follow-up/Referrals: Germain Youssef MD [Physician] - (please schedule a follow-up appointment within 2 weeks) Sherlyn Ford MD [Primary Care Provider] - 05/11/25 10:00 am Diet: Regular Ambulatory Orders: Basic Metabolic Panel (Routine) Timeframe: 3 Days Location: Determined by Patient Ordered By: Nichole Garcia Complete Blood Count with Diff (Routine) Timeframe: 3 Days Location: Determined by Patient Ordered By: Nichole Garcia Addtl Attending Provider Instructions: You were admitted to [facility] for acute kidney injury caused by blood urine likely the result of an obstruction in urine outflow. You were treated with IV fluids, Fowler catheter, and bladder irrigation. You also were given a brief course of antibiotics due to concern of infection, however your urine studies were negative and were discontinued. Your blood counts and electrolytes remained stable during admission. Your kidney function has improved on discharge. Repeat labs (CBC & BMP) were ordered with completion in about 3 days after discharge. You can follow-up these results with your PCP. Please arrange to make a follow-up appointment with Dr. Youssef with urology within 2 weeks of discharge for evaluation of your urine output/bloody urine. CT scan of your abdomen/pelvis were completed during admission. There is an incidental finding of endometrial thickening and a cystic pancreatic lesion. Please be sure to follow-up with you PCP within 1-2 weeks of discharge to arrange appropriate follow-up/further evaluation by GI and [employer] BUSINESS ANALYST. Pending Studies at Discharge: No Stand-Alone Forms: My [facility] Qlue, Smoking Cessation Medications and DC Order Prescriptions: No Action No Known Home Medications Discharge Orders: Discharge Order (Routine); Ordered 05/05/25 Ordered By: Nichole Garcia Admission Data Admit Date/Time: 05/02/25 16:55 Attending Provider: Merle Jordan Admit Provider: Merle Jordan Primary Care Provider: Sherlyn Ford Other Providers: Merle Jordan; Germain Youssef Supervising Physician Co-Signing Physician Notes I personally examined the patient and verified all toro points of history and exam, discussed case, and agree with decision making with Dr. Rodrick Londono and MS4 Ms. Patel with the following additions/exceptions: S-patient was seen twice on the day of discharge and she complained of bladder fullness and was having pain and could not urinate even after 7 hours after the Fowler catheter was removed. She was tearful but felt better after having the Fowler catheter placed and was stable for discharge to home with Fowler catheter in place and close urology follow-up O- Vitals Reviewed Gen: AAOx3, NAD HEENT: Anicteric sclerae, EOMI CBC, BMP, urine cx reviewed A/P: 84 yo female with a h/o depression/anxiety, lower back pain, here with RLQ abd pain and gross hematuria with abnormal right kidney on CT abd/pel. Hematuria cleared except for some brown sediment after Fowler placed for retention, developed SUSU likely post-obstructive which is now resolved after flushing with IV fluids Unfortunately, she failed a trial of void on the day of discharge and Fowler catheter had to be replaced for over 600 mL of brown urine Hgb slight drop since admission but remains hemodynamically stable at 13.7. Consult Urology appreciated-now that SUSU has resolved, plan for outpatient ureteroscopy. Continue Fowler catheter at home until follow-up with urology Continued ceftriaxone as urine culture with no growth-pyuria likely due to gross hematuria/leukocytes in the blood Follow CBC and BMP in 1 week as an outpatient f/u incidental uterine and pancreas findings as outpt Discharge to home A total of 35 minutes was spent in coordination of care, [id number] time with the patient, review of laboratories on the day of discharge Resident Activity Tracking Resident Involvement: Resident Care Provided Care Provided: Adult Hospital Medicine
--- NOTE | 2025-05-05 14:55 | Billing Data ---
Date of Service May 05, 2025 Coding Level of Care Code 80656 INP/OBS DISCH >30 MIN Time Spent (min) 35
[2025-05-05 15:47] VITALS: RESP 18
[2025-05-05 16:28] VITALS: BP 130/74; PULSE 77
[2025-05-08 12:52] LABS: Urea Nitrogen, Random Urine 296 mg/dL
== END 2025-05-05 16:46 | disposition home or self-care (01) | DRG 684 ==
LOC: 3E 11:14 → ED 11:14 → 3E 17:45
DX: F41.9 Anxiety disorder, unspecified; N17.9 Acute kidney failure, unspecified; D13.6 Benign neoplasm of pancreas; Z96.643 Presence of artificial hip joint, bilateral; N13.9 Obstructive and reflux uropathy, unspecified; R33.9 Retention of urine, unspecified; R31.0 Gross hematuria; K59.00 Constipation, unspecified